=== PATIENT | female | born 2000 | race Caucasian/White ===

== ENCOUNTER 2024-02-01 17:16 | Inpatient (IN) | payer OTHER ==
[~2024-02-01] VITALS: Ht 160 cm; Wt 2.7 kg
[2024-02-01 18:12] LABS: HEMATOCRIT 29.1 % (36.0-45.00); HEMOGLOBIN 9.9 g/dL (12.0-15.00); MEAN CELL VOLUME 82.4 fL (80.00-100.00); MEAN CORPUSCULAR HEMOGLOBIN 28.1 pg (27.00-32.0); MEAN CORPUSCULAR HGB CONC 34.1 g/dl (32.0-36.0); PLATELET COUNT 283 K/uL (150-450); RED BLOOD COUNT 3.54 M/uL (4.00-6.00)
[2024-02-01 18:15] LABS: URINE APPEARANCE Turbid; URINE BILIRRUBIN Negative (NEGATIVE); URINE BLOOD Negative; URINE COLOR Yellow; URINE GLUCOSE Negative (NEGATIVE); URINE KETONE Negative (NEGATIVE); URINE LEUKOCYTE Trace; URINE NITRATE Negative; URINE PROTEIN Negative (NEGATIVE)
[2024-02-01 18:16] LABS: URINE BACTERIA 1332.9 uL (0.0-1933); URINE EPITHELIAL CELLS 113.3 uL (0.0-38.8); URINE RBC 14.1 uL (0.0-20.8)
[2024-02-01 19:23] LABS: URINE CAST 0.15 uL (0.0-1.40)
[2024-02-01 19:24] LABS: URINE YEAST NEGATIVE /hpf
[2024-02-01] MEDS ORDERED: SOD FERRIC GLUC COMPLX/SUCROSE 62.5 MG/5 ML AMPUL IV ONE (20:15)
[2024-02-01] MEDS ORDERED: IRON240 MG (20:58)
[2024-02-01] MEDS ORDERED: PRENA1 TRUE CO1 EACH (20:58)
[2024-02-01 22:23] LABS: RED CELL DISTRIBUTION WIDTH 17.3 % (11.5-14.5)
[2024-02-02] MEDS ORDERED: BETAMETHASONE ACETATE,SOD PHOS 30 MG/5 ML ML IM SCH (17:00)
[2024-02-03] MEDS ORDERED: CEFAZOLIN SODIUM 1,000 MG VIAL ONE ×2 (11:32→11:50)
[2024-02-03] MEDS ORDERED: ERYTHROMYCIN BASE 1 GM TUBE OP ONE (11:50)
[2024-02-03] MEDS ORDERED: OXYTOCIN 10 UNITS/ML VIAL ONE ×2 (11:50→15:51)
[2024-02-03] MEDS ORDERED: CEFAZOLIN SODIUM 1,000 MG VIAL IV STA (11:56)
[2024-02-03] MEDS ORDERED: KETOROLAC TROMETHAMINE 60 MG VIAL IM STA (13:06)
[2024-02-03] MEDS ORDERED: MEPERIDINE HCL/PF 50 MG/ML VIAL IM PRN (13:15)
[2024-02-03] MEDS ORDERED: ERYTHROMYCIN BASE 1 GM TUBE OP NR (13:15)
[2024-02-03] MEDS ORDERED: RINGERS SOLUTION,LACTATED 1,000 ML IV SCH (13:15)
[2024-02-03] MEDS ORDERED: CHLORHEXIDINE GLUCONATE 120 ML BOTTLE TOP NR (13:15)
[2024-02-03] MEDS ORDERED: PROMETHAZINE HCL 25 MG/ML AMPUL IM PRN (13:15)
[2024-02-03] MEDS ORDERED: OXYTOCIN 1,000 ML IV SCH (13:15)
[2024-02-03] MEDS ORDERED: KETOROLAC TROMETHAMINE 60 MG VIAL IM ONE (14:45)
[2024-02-03 15:24] LABS: HEMATOCRIT 27.2 % (36.0-45.00); MEAN CELL VOLUME 85.4 fL (80.00-100.00); MEAN CORPUSCULAR HGB CONC 32.3 g/dl (32.0-36.0); PLATELET COUNT 228 K/uL (150-450); RED BLOOD COUNT 3.19 M/uL (4.00-6.00); RED CELL DISTRIBUTION WIDTH 17.2 % (11.5-14.5)
[2024-02-03 15:26] LABS: HEMOGLOBIN 8.8 g/dL (12.0-15.00); MEAN CORPUSCULAR HEMOGLOBIN 27.5 pg (27.00-32.0)
[2024-02-04] MEDS ORDERED: ACETAMINOPHEN 500 MG GEL..CAP PO PRN (07:30)
[2024-02-04] MEDS ORDERED: OxyCODONE HCL/APAP UD (PERCOCET) PO PRN (09:00)
[2024-02-06] MEDS ORDERED: IBUPROFEN800 MG PO (09:49)
== END 2024-02-06 18:20 | disposition home or self-care (01) | DRG 786 ==
LOC: OBS/DEL 17:16 → LDR 02-02 15:05 → O/R 02-03 13:22 → OB/GYN 02-03 14:22
PROVIDERS: ADMIT Obstetrics & Gynecology; ATTEND Obstetrics & Gynecology
PROC: 4A1HXCZ Monitoring of Products of Conception, Cardiac Rate, External Approach (ICD-10-PCS; 2024-02-02)
PROC: BY4FZZZ Ultrasonography of Third Trimester, Single Fetus (ICD-10-PCS; 2024-02-02)
PROC: BY4FZZZ Ultrasonography of Third Trimester, Single Fetus (ICD-10-PCS; 2024-02-03)
PROC: 10D00Z1 Extraction of Products of Conception, Low, Open Approach (ICD-10-PCS; principal; 2024-02-03 13:45)
DX: O36.8330 Maternal care for abnormalities of the fetal heart rate or rhythm, third trimester, not applicable or unspecified (principal); O60.14X0 Preterm labor third trimester with preterm delivery third trimester, not applicable or unspecified; O41.03X0 Oligohydramnios, third trimester, not applicable or unspecified; O36.5930 Maternal care for other known or suspected poor fetal growth, third trimester, not applicable or unspecified; O36.8130 Decreased fetal movements, third trimester, not applicable or unspecified; Z3A.36 36 weeks gestation of pregnancy; Z37.0 Single live birth; Z20.822 Contact with and (suspected) exposure to COVID-19